=== PATIENT | female | born 1970 | race American Indian/Alaskan Native ===

== ENCOUNTER 2018-09-11 10:23 | Emergency (ER) | payer BC ==
--- NOTE | 2018-09-11 10:39 | Emergency Department Report ---
ED ENT HPI - General Chief complaint: Earache Stated complaint: (R) EAR PAIN/RINGING Time Seen by Provider: 09/11/18 10:34 Source: patient Mode of arrival: Ambulatory Limitations: No Limitations - History of Present Illness Initial comments: 48-year-old -Citizen Of [place] female comes in for right ear ache and ringing of the ear this morning. Patient reports onset yesterday with difficulty hearing. Patient denies any drainage from ear. She does admit to decreased hearing on the right ear tinnitus of the right ear denies any trauma on this to URI sy mptoms. Days ago. She admits to hot flashes at night. MD complaint: ear pain -: days(s) (1) Location: R ear Severity: mild Severity scale (0 -10): 2 Consistency: constant Improves with: none Associated Symptoms: tinnitus. denies: discharge from ear - Related Data Home Medications Medication Instructions Recorded Confirmed Last Taken No Known Home Medications [No 08/24/13 08/24/13 Unknown Reported Home Medications] Allergies Allergy/AdvReac Type Severity Reaction Status Date / Time Sulfa (Sulfonamide Allergy Rash Verified 09/11/18 10:27 Antibiotics) ED Dental HPI - General Chief complaint: Earache Stated complaint: (R) EAR PAIN/RINGING Time Seen by Provider: 09/11/18 10:34 Source: patient Mode of arrival: Ambulatory Limitations: No Limitations - Related Data Home Medications Medication Instructions Recorded Confirmed Last Taken No Known Home Medications [No 08/24/13 08/24/13 Unknown Reported Home Medications] Allergies Allergy/AdvReac Type Severity Reaction Status Date / Time Sulfa (Sulfonamide Allergy Rash Verified 09/11/18 10:27 Antibiotics) ED Review of Systems ROS: Stated complaint: (R) EAR PAIN/RINGING Other details as noted in HPI Comment: All other systems reviewed and negative ENT: hearing loss, other (tinnitus of the right ear) ED Past Medical Hx - Past Medical History Hx Kidney Stones: Yes - Surgical History Additional Surgical History: uterine fibroid removal - Social History Smoking Status: Never Smoker Substance Use Type: None - Medications Home Medications: Home Medications Medication Instructions Recorded Confirmed Last Taken Type No Known Home Medications [No 08/24/13 08/24/13 Unknown History Reported Home Medications] ED Physical Exam - General Limitations: No Limitations General appearance: alert, in no apparent distress - Head Head exam: Present: atraumatic, normocephalic - Eye Eye exam: Present: EOMI - Expanded ENT Exam Expanded TM/Canal exam: Cerumen Impaction: Right TM (close to the tympanic membrane) ED Course Vital Signs 09/11/18 10:28 Temperature 97.6 F Pulse Rate 68 Respiratory 20 Rate Blood Pressure 111/76 O2 Sat by Pulse 99 Oximetry - Ear Wax Removal Right Ear Cerumenolytic Used: 5-10% Sodium Bicarb solution Ear Canal Irrigated by: other (ip architect) Ear Canal Irrigated With: warm saline using syringe/angiocath TM Visible: TM(s) intact, normal appe Ear Canal: atraumatic Patient Tolerated Procedure: well Complications: no problems ED Medical Decision Making - Medical Decision Making Patient has been evaluated by this provider in fast track. Right side cerumen impaction will irrigate. Referral to all toe laryngology's Patient reports after irrigation she is able to hear much better she denies any pain there is no visual tympanic rupture no blood in canal. Critical care attestation.: If time is entered above; I have spent that time in minutes in the direct care of this critically ill patient, excluding procedure time. ED Disposition Clinical Impression: Right ear impacted cerumen, Irritation of right ear Disposition: [id number] TO HOME OR SELFCARE Is pt being admited?: No Does the pt Need Aspirin: No Condition: Stable Instructions: Cerumen Impaction (ED) Additional Instructions: Please follow up with the ear nose and throat provider if his symptoms persist or gets worse. Referrals: JENNY MICHAELS MD [Staff Physician] - 3-5 Days
[2018-09-12 13:53] VITALS: BP 111/76
== END 2018-09-11 11:51 | disposition home or self-care (01) ==
LOC: ED 10:23
DX: H61.21 Impacted cerumen, right ear (principal); Z87.442 Personal history of urinary calculi
CPT/HCPCS: 99283